=== PATIENT | female | born 1950 | race Caucasian/White ===

== ENCOUNTER 2017-09-01 18:17 | Emergency (ER) | payer OTHER ==
[2017-09-01 19:10] VITALS: BP 160/85
--- NOTE | 2017-09-01 20:10 | UC ---
Knee Pain HPI - HPI Summary HPI Summary: This is a 66 yo female with a prior L hip replacement who presents with c/o acute onset L knee pain. She was carrying her infant grandson upstairs when she felt and heard a sudden pop her knee. She had immediate pain and difficulty walking on it. No prior knee injury. She has pain mostly in the lateral and posterior aspects of the knee. - History of Current Complaint Chief Complaint: UCLowerExtremity Stated Complaint: KNEE INJURY Pain Intensity: 0 Pain Scale Used: 0-10 Numeric - Allergies/Home Medications Allergies/Adverse Reactions: Allergies Allergy/AdvReac Type Severity Reaction Status Date / Time No Known Allergies Allergy Verified 09/01/17 19:10 Home Medications: Home Medications Albuterol HFA INHALER* [Ventolin HFA Inhaler*] 1 puff INH WEEKLY 09/01/17 [ History Confirmed 09/01/17] Lisinopril TAB* [Prinivil TAB 10 MG*] 10 mg PO DAILY 09/01/17 [History Confirmed 09/01/17] PMH/Surg Hx/FS Hx/Imm Hx Previously Healthy: Yes - Surgical History Surgical History: Yes Surgery Procedure, Year, and Place: left hip replacement 1993. left hip revision 2000 - Family History Known Family History: Positive: None - Social History Alcohol Use: Occasionally Substance Use Type: None Smoking Status (MU): Never Smoked Tobacco Review of Systems Constitutional: Negative Skin: Negative Eyes: Negative ENT: Negative Respiratory: Negative Cardiovascular: Negative Gastrointestinal: Negative Genitourinary: Negative Motor: Decreased ROM Neurovascular: Negative Musculoskeletal: Arthralgia Neurological: Negative Psychological: Negative Is Patient Immunocompromised?: No All Other Systems Reviewed And Are Negative: Yes Physical Exam Triage Information Reviewed: Yes Appearance: Well-Appearing Vital Signs: Initial Vital Signs Temp 98.6 F 09/01/17 18:58 Pulse 80 09/01/17 18:58 Resp 18 09/01/17 18:58 BP 160/85 09/01/17 18:58 Pulse Ox 98 09/01/17 18:58 Vital Signs Reviewed: Yes ENT Exam: Normal Neck exam: Normal Respiratory Exam: Normal Respiratory: Positive: Lungs clear. Negative: Crackles, Rhonchi, Stridor, Wheezing Cardiovascular Exam: Normal Cardiovascular: Positive: RRR, No Murmur Abdominal Exam: Normal Musculoskeletal: Positive: Other: - FROM of the L knee, but some pain. Mild TTP to posterior knee, little joint line pain. Pain with compression and anterior drawer testing, difficult to assess laxity. Neurological Exam: Normal Neurological: Positive: Alert Psychological Exam: Normal Skin Exam: Normal Knee Pain Course/Dx - Course Course Of Treatment: 66 yo female with sudden onset knee pain accompanying a pop with posterior knee pain. Likely ACL v mensical tear. Recommend ortho evaluation non-emergently. Crutches if needed, no immobilization. NSAIDs/ice. - Differential Dx/Diagnosis Differential Diagnosis/HQI/PQRI: Fracture (Closed), Internal Derangement Of Knee , Sprain, Strain Provider Diagnoses: 1. Acute knee injury - ACL tear v meniscus Discharge - Sign-Out/Discharge Documenting (check all that apply): Discharge - Discharge Plan Condition: Stable Disposition: HOME Patient Education Materials: ACL Injury (ED) Referrals: Zahra aWn MD [Medical Doctor] - 2 Days (please call the office to request an appointment) No Primary Care Phys,NOPCP [Primary Care Provider] - Additional Instructions: Instructions: 1. Use crutches if needed for pain relief while walking 2. Use 600-800 mg ibuprofen 3-4 times daily 3. Apply compression to reduce swelling 4. Apply ice frequently 5. Call the orthopedic office for an appointment within the next few days - Billing Disposition and Condition Condition: STABLE Disposition: HOME
== END 2017-09-01 19:45 | disposition home or self-care (01) ==
LOC: UCEAST 18:17
DX: S89.92XA Unspecified injury of left lower leg, initial encounter (principal); X58.XXXA Exposure to other specified factors, initial encounter; Y93.F2 Activity, caregiving, lifting; Y92.9 Unspecified place or not applicable
CPT/HCPCS: 99201; G0463

== ENCOUNTER 2019-04-17 15:14 | Emergency (ER) | payer MEDICARE ==
--- OUTSIDE RECORDS SUMMARY | 2019-04-17 15:20 | XMS REPORT | Continuity of Care Document ---
:1950 External Reference #:[id number] Author Name Celina Zuniga M.D. Address [address] [place] [address] Care Team Providers Name Role Phone Ila Humphreys FNP-C Care Team Information Proposal Rep [phone] Problems Active Problems Provider Date Mild persistent asthma Celina Zuniga M.D. Onset: 01/13/2018 Mild intermittent asthma Celina Zuniga M.D. Onset: 01/13/2018 Atopic dermatitis Celina Zuniga M.D. Onset: 12/17/2017 Allergic rhinitis due to animals Celina Zuniga M.D. Onset: 12/17/2017 Allergic rhinitis due to pollen Celina Zuniga M.D. Onset: 12/17/2017 Cough Celina Zuniga M.D. Onset: 12/17/2017 Social History Type Date Description Comments Sex Unknown Tobacco Use Start: Unknown Never Used Smokeless Tobacco ETOH Use Occasionally consumes wine Tobacco Use Start: Unknown Patient has never smoked Recreational Drug Use Never Used Drugs Allergies, Adverse Reactions, Alerts Active Allergies Reaction Severity Comments Date NKDA 12/17/2017 Latex 12/17/2017 Medications Active Medications SIG Qnty Indications Ordering Date Provider Asmanex HFA 2 puffs 2x/day 1units Celina Zuniga, 03/23/2019 100mcg/Act M.D. Aerosol Levocetirizine Take 1 Tablet By 90tabs Celina Zuniga, 04/20/2018 Dihydrochloride Mouth Everyday M.D. 5mg Tablets AT Bedtime Ventolin HFA 2 every 4 hours 18gm Marleen Arreguin, 12/17/2017 108(90Base) as needed [facility]-C mcg/Act Aerosol Acyclovir prn Unknown 400mg Tablets Methylphenidate HCL Take 1 Tablet By Unknown 5mg Mouth Twice Tablets Daily Xyzal Allergy 24HR once daily at 90tabs Celina Zuniga, 5mg bedtime M.D. Tablets Flonase Allergy Relief 1 spray each Unknown nostril everyday 50mcg/Act Suspension Irbesartan Ila Humphreys, 150mg Tablets RN [facility] Immunizations CPT Code Status Date Vaccine Lot # [id number] Given Unknown Pneumococcal Vaccine 58418 Given Unknown Influenza Vaccine 51270 Given Unknown Influenza Vaccine Vital Signs Date Vital Result Comment 03/23/2019 11:24am Height 60 inches 5'0" Weight 134.00 lb Weight 60.782 kg Respiratory Rate 20 /min Heart Rate 86 /min O2 % BldC Oximetry 97 % BP Systolic 158 mmHg BP Diastolic 88 mmHg Asthma Control Test 23 Fractional Exhaled Nitric Oxide 36 BMI (Body Mass Index) 26.2 kg/m2 09/22/2018 11:04am Height 60 inches 5'0" Weight 131.00 lb Weight 59.422 kg Respiratory Rate 20 /min Heart Rate 93 /min O2 % BldC Oximetry 98 % BP Systolic 149 mmHg BP Diastolic 91 mmHg Asthma Control Test 21 Fractional Exhaled Nitric Oxide 12 BMI (Body Mass Index) 25.6 kg/m2 Results Description No Information Available Procedures Date Code Description Status 03/23/2019 74082 Nitric Oxide Gas Determination Completed 03/23/2019 13609 Pre PFT Completed 09/22/2018 69613 Nitric Oxide Gas Determination Completed 09/22/2018 31757 Pre PFT Completed Medical Devices Description No Information Available Encounters Type Date Location Provider Dx Diagnosis Office Visit 09/22/2018 [place] Celina Zuniga J45.30 Mild persistent asthma, 11:00a M.D. uncomplicated R05 Cough J30.81 Allergic rhinitis due to animal (cat) (dog) hair and dander J30.1 Allergic rhinitis due to pollen Assessments Date Code Description Provider 03/23/2019 J45.30 Mild persistent asthma, uncomplicated Celina Zuniga M.D. 03/23/2019 R05 Cough Celina Zuniga M.D. 03/23/2019 J30.81 Allergic rhinitis due to animal (cat) (dog) Celina Zuniga M.D. hair and dander 03/23/2019 J30.1 Allergic rhinitis due to pollen Celina Zuniga M.D. 09/22/2018 J45.30 Mild persistent asthma, uncomplicated Celina Zuniga M.D. 09/22/2018 R05 Cough Celina Zuniga M.D. 09/22/2018 J30.81 Allergic rhinitis due to animal (cat) (dog) Celina Zuniga M.D. hair and dander 09/22/2018 J30.1 Allergic rhinitis due to pollen Celina Zuniga M.D. Plan of Treatment Future Appointment(s):08/17/2019 3:00 pm - Celina Zuniga M.D. at [id number] - Celina Zuniga M.D.J45.30 Mild persistent asthma, [id number] Allergic rhinitis due to animal (cat) (dog) hair and ghtpqoJ50.1 Allergic rhinitis due to pollenFollow up:3-6 months CHECK-UP/FOLLOW UP VISIT: Continued management of patient's medical care. Vargas, PRERecommendations:Refrain from wearing perfumes/scented colognes while visiting our office. Vargas performed reviewed, looks elevated today at 36 ppb, which suggests you fo have some ongoing, allergic inflammation currently (best level was 12 which is completely normal) Start Asmanex 100 mcg 1 puff twice daily with the holding chamber Can be increased to a maximum of 2 puffs twice daily If you are feeling well after a few weeks on twice daily you can cut back to 1 puff once daily. Do not stop it completely. Let me know if you have any problems with it Continue the Levocetirizine, Nasal spray, OK to stay off of QVAR Functional Status Description No Information Available Mental Status Description No Information Available Referrals Description No Information Available
[2019-04-17 15:33] VITALS: BP 164/86
--- NOTE | 2019-04-17 15:44 | UC ---
Abdominal Pain Female HPI - HPI Summary HPI Summary: Patient presents to urgent care for evaluation of urinary frequency, urgency, and an urination burning. Patient states 2 days ago she noticed a small odor to her urine. Patient states she had chills overnight but these resolved. Patient without a fever. Patient with mild nausea but no vomiting. Patient without a vaginal discharge, itching, odor. Patient was also history of UTI but was very long time ago. Patient states she is leaving time Thursday and thought she should get checked today. Patient has been drinking lots of water to flush it. Patient's medications reviewed this visit. Patient is not immunocompromised. - History of Current Complaint Chief Complaint: UCGU Stated Complaint: BURNING URINATION Time Seen by Provider: 04/17/19 15:37 Hx Obtained From: Patient ?: No Pain Intensity: 4 Allergies/Adverse Reactions: Allergies Allergy/AdvReac Type Severity Reaction Status Date / Time No Known Allergies Allergy Verified 09/01/17 19:10 Home Medications: Home Medications Beclomethasone 40 MCG MDI(NF) [Qvar 40 MCG MDI(NF)] 1 puff INH DAILY 04/17/19 [ History Confirmed 04/17/19] PMH/Surg Hx/FS Hx/Imm Hx Previously Healthy: Yes - Surgical History Surgical History: Yes Surgery Procedure, Year, and Place: left hip replacement 1993. left hip revision 2000 - Family History Known Family History: Positive: Non-Contributory - Social History Lives: With Family Alcohol Use: Occasionally Substance Use Type: None Smoking Status (MU): Never Smoked Tobacco Review of Systems All Other Systems Reviewed And Are Negative: Yes Constitutional: Positive: Negative Skin: Positive: Negative Gastrointestinal: Positive: Nausea Genitourinary: Positive: Dysuria, Frequency, Urgency. Negative: Hematuria, Vaginal/Penile Burning, Vaginal/Penile Itching, Vaginal/Penile Discharge, Vaginal/Penile Pain, Vaginal/Penile Tenderness Physical Exam - Summary Physical Exam Summary: Vital Signs Reviewed: Yes A+Ox3, no distress Eyes: Conjunctiva Clear, ENT: Hearing grossly normal mmm Neck: Positive: Supple Respiratory: Positive: No respiratory distress, No accessory muscle use + CTA throughout no w/r Cardiovascular: RRR nl s1, s2 no m/r CBT <2 sec abd soft + BS mild suprapubic discomfort with direct palp. No guarding, no rebound no CVA Musculoskeletal Exam: VAZ x 4 without difficulty Strength Intact, ROM Intact Neurological: Positive: Alert, + sensation throughout Psychological: Positive: Normal Response To examiner Skin: Positive: no rash, no ecchymosis Triage Information Reviewed: Yes Vital Signs: Initial Vital Signs Temp 98.7 F 04/17/19 15:25 Pulse 99 04/17/19 15:25 Resp 16 04/17/19 15:25 BP 164/86 04/17/19 15:25 Pulse Ox 99 04/17/19 15:25 Abd Pain Female Course/Dx - Course Course Of Treatment: Patient presents to urgent care with 2 days of progressive urgency, frequency, and dysuria. No hematuria. Patient states 2 days ago she had mild odor to urine that has subsided. Patient states that at times she also had some chills overnight but has not recurred. No fevers. Patient with mild suprapubic tenderness. Patient's leaving town on Thursday wanted it checked. No vaginal discharge or symptoms. On exam vital signs are stable. Patient does have mild suprapubic discomfort. Patient's urinalysis with UTI including leuk esterase and blood. We'll start patient on Keflex. We'll culture. Patient declined Diflucan. Pyridium. BP elevated -recommend f/u with pcp Strict return precautions discussed. We'll verify have the right phone number for patient and she is going out of town. Also discussed with patient culture. Patient is understanding of plan. Of note, prescription when she was 100 tablets. We'll correct to 10. Patient notified prior to discharge. - Differential Dx/Diagnosis Provider Diagnosis: Dysuria Discharge ED - Sign-Out/Discharge Documenting (check all that apply): Patient Departure All imaging exams completed and their final reports reviewed: No Studies - Discharge Plan Condition: Stable Disposition: HOME Prescriptions: cephALEXin [Keflex] 500 mg PO BID #14 capsule Phenazopyridine TAB* [Pyridium 100 mg TAB*] 100 mg PO TID PRN #100 tab PRN Reason: burning with urination Patient Education Materials: Urinary Tract Infection in Women (ED) Referrals: Ila Humphreys NP [Primary Care Provider] - Additional Instructions: - stay well hydrated - drink plenty of non-alcoholic, non caffinated beverages - Take your antibiotics exactly as prescribed until gone - Take pyridium as prescribed for discomfort. This will make your urine blaze orange - this is normal - Okay to alternate ibuprofen (Advil, Motrin) and Tylenol every 3 hours for pain. Take with food - Call your doctor or return with questions or concerns. - Billing Disposition and Condition Condition: STABLE Disposition: Home
== END 2019-04-17 16:01 | disposition home or self-care (01) ==
LOC: UCEAST 15:14
DX: R30.0 Dysuria (principal); R35.0 Frequency of micturition
CPT/HCPCS: 81003; 87077; 87086; 87186; 99212; G0463